=== PATIENT | female | born 1980 | race Caucasian/White ===

== ENCOUNTER 2020-02-10 23:51 | Emergency (ER) | payer OTHER ==
[2020-02-11] MEDS ORDERED: ONDANSETRON HCL INJ/PF 4 MG/2 ML SDV IV ONE ×2 (00:18→06:31)
[2020-02-11] MEDS ORDERED: RINGERS SOLUTION,LACTATED 1,000 ML IV ONE (00:19)
--- NOTE | 2020-02-11 00:21 | ER Document Report ---
ED Medical Screen (RME) - General Chief Complaint: Weakness Stated Complaint: WEAKNESS Time Seen by Provider: 02/11/20 00:17 Mode of Arrival: Ambulatory Information source: Patient Notes: HPI; 39-year-old female with no previous medical problems presents emergency room stating that while at dinner earlier tonight around 930 she suddenly became dizzy and nauseous and general weakness while eating dinner. States she got up to go to the ladies room did not vomit but had a bowel movement and then states she was unable to get off the toilet secondary to the dizziness. Denies any chest pain, shortness of breath, no difficulty breathing. States is feeling slightly better. Did not eat anything bad that she is aware of. PE: Alert and oriented x3. Mild distress noted. Lungs: Clear to auscultation without rales, rhonchi, wheezes. Heart: Regular rate and rhythm without murmurs, rubs, gallops. I have greeted and performed a rapid initial assessment of this patient. A comprehensive ED assessment and evaluation of the patient, analysis of test results and completion of the medical decision making process will be conducted by additional ED providers. I have specifically instructed the patient or family members with the patient to immediately return to any nursing staff should anything change in the patient's condition or with their chief complaint. TRAVEL OUTSIDE OF THE [place] IN LAST 30 DAYS: No - Related Data Allergies/Adverse Reactions: No Known Allergies Allergy (Unverified 02/11/20 00:19) Home Medications: MOTRIN. CLARITAN Past Medical History - Social History Frequency of alcohol use: Social Drug Abuse: None Physical Exam - Vital signs Vitals: Temp Pulse Resp BP Pulse Ox 97.7 F 85 16 129/88 H 97 02/10/20 23:59 02/10/20 23:59 02/10/20 23:59 02/10/20 23:59 02/10/20 23:59 Course - Vital Signs Vital signs: Temp Pulse Resp BP Pulse Ox 97.7 F 85 16 129/88 H 97 02/10/20 23:59 02/10/20 23:59 02/10/20 23:59 02/10/20 23:59 02/10/20 23:59
[2020-02-11 02:26] LABS: ABSOLUTE BASOPHILS # (AUTO) 0.1 10^3/uL (0.0-0.2); ABSOLUTE EOSINOPHILS # (AUTO) 0.3 10^3/uL (0.0-0.6); ABSOLUTE LYMPHOCYTES (AUTO) 2.5 10^3/uL (0.5-4.7); ABSOLUTE MONOCYTES (AUTO) 0.5 10^3/uL (0.1-1.4); ABSOLUTE NEUT (AUTO) 7.1 10^3/uL (1.7-8.2); BASOPHILS % (AUTO) 0.7 % (0-2); EOSINOPHILS % (AUTO) 2.7 % (0-6); HEMATOCRIT 40.8 % (36.0-47.0); HEMOGLOBIN 14.2 g/dL (12.0-15.5); LYMPHOCYTES % (AUTO) 24.3 % (13-45); MEAN CORPUSCULAR HEMOGLOBIN 30.8 pg (27.0-33.4); MEAN CORPUSCULAR HGB CONC 34.8 g/dL (32.0-36.0); MEAN CORPUSCULAR VOLUME 88 fl (80-97); MONOCYTES % (AUTO) 4.7 % (3-13); PLATELET COUNT 280 10^3/uL (150-450); RED BLOOD COUNT 4.61 10^6/uL (3.72-5.28); SEGMENTED NEUTROPHILS % (AUTO) 67.6 % (42-78); TOTAL CELLS COUNTED % (AUTO) 100 %; WHITE BLOOD COUNT 10.5 10^3/uL (4.0-10.5)
[2020-02-11 02:38] LABS: ALBUMIN 4.2 g/dL (3.5-5.0); ALKALINE PHOSPHATASE 86 U/L (38-126); ANION GAP 6 (5-19); ASPARTATE AMINO TRANSFERASE 24 U/L (14-36); BILIRUBIN,TOTAL 0.2 mg/dL (0.2-1.3); BLOOD UREA NITROGEN 18 mg/dL (7-20); CARBON DIOXIDE 29 mmol/L (22-30); CHLORIDE 102 mmol/L (98-107); GLUCOSE 144 mg/dL (75-110); POTASSIUM 3.8 mmol/L (3.6-5.0)
[2020-02-11 02:41] LABS: APPEARANCE,URINE SLIGHTLY-CLOUDY; BILIRUBIN,URINE NEGATIVE (NEGATIVE); COLOR,URINE YELLOW; GLUCOSE, URINE 50 mg/dL (NEGATIVE); KETONES,URINE TRACE mg/dL (NEGATIVE); LEUKOCYTE ESTERASE,URINE NEGATIVE (NEGATIVE); NITRITE,URINE NEGATIVE (NEGATIVE); PROTEIN,URINE NEGATIVE (NEGATIVE); UROBILINOGEN,URINE NEGATIVE mg/dL (<2.0)
[2020-02-11] MEDS ORDERED: NORMAL SALINE 1000 ML 1,000 ML IV ONE (06:30)
[2020-02-11] MEDS ORDERED: MECLIZINE HCL 25 MG TABLET PO ONE (06:31)
--- NOTE | 2020-02-11 07:26 | RADIOLOGY REPORT (SQ) ---
CLINICAL HISTORY: dizziness COMPARISON: None. TECHNIQUE: CT HEAD WITHOUT IV CONTRAST on 02/11/2020 6:32 AM CDT This exam was performed according to our departmental dose-optimization program, which includes automated exposure control, adjustment of the mA and/or kV according to patient size and/or use of iterative reconstruction technique. FINDINGS: There is no acute hemorrhage, mass effect or midline shift. French-white differentiation is preserved. There is no hydrocephalus. There is no significant volume loss for age. The calvarium is intact. Orbits and globes are unremarkable. The paranasal sinuses are clear. Mastoid air cells are clear. IMPRESSION: No acute intracranial findings.
--- NOTE | 2020-02-11 08:31 | ER Document Report ---
Entered by CASEY SRIVASTAVA SCRIBE 02/11/20 0703 Acting as scribe for:VALERI ENGLISH MD ED Dizziness/Weakness - General Chief Complaint: Near Syncope Stated Complaint: WEAKNESS Time Seen by Provider: 02/11/20 00:17 Mode of Arrival: Ambulatory Information source: Patient Notes: This 39 year old female patient with "borderline" diabetes presents to the emergency department today with complaints of dizziness with associated nausea. She reports that she had been busy most of the day yesterday and had not eaten in about 9 hours and she was sitting down to eat at [facility] and began feeling dizzy and her adds that she "seemed to be gazing past you". She became nauseated so they helped her to the bathroom. He reports that "while she was in the bathroom he googled what the cause of these symptoms could be and his two potential causes were hypoglycemia or food poisoning so he bought her a shot of RumChata to raise her sugar and kill the bacteria in her stomach." Her last menstrual period was January 29 and she is not . She complains of a headache and congestion which is chronic due to season allergies". She denies a sore throat. TRAVEL OUTSIDE OF THE [place] IN LAST 30 DAYS: No - Related Data Allergies/Adverse Reactions: No Known Allergies Allergy (Unverified 02/11/20 00:19) Home Medications: MOTRIN. CLARITAN Past Medical History - General Information source: Patient - Social History Smoking Status: Former Smoker Cigarette use (# per day): No Frequency of alcohol use: Social Drug Abuse: None Lives with: Family Family History: Reviewed & Not Pertinent Endocrine Medical History: Reports: Hx Diabetes Mellitus Type 2 - borderline Past Surgical History: Reports: Hx Tubal Ligation Review of Systems - Review of Systems Constitutional: No symptoms reported EENT: No symptoms reported Cardiovascular: See HPI, Dizziness Respiratory: No symptoms reported Gastrointestinal: See HPI, Nausea Genitourinary: No symptoms reported Female Genitourinary: No symptoms reported Musculoskeletal: No symptoms reported Skin: No symptoms reported Hematologic/Lymphatic: No symptoms reported Neurological/Psychological: No symptoms reported -: Yes All other systems reviewed and negative Physical Exam - Vital signs Vitals: Temp Pulse Resp BP Pulse Ox 97.7 F 85 16 129/88 H 97 02/10/20 23:59 02/10/20 23:59 02/10/20 23:59 02/10/20 23:59 02/10/20 23:59 - Notes Notes: Physical Exam: General: Alert, appears well. HEENT: Normocephalic. Atraumatic. PERRL. Extraocular movements intact. Orop harynx clear. Serous effusion behind TMs bilaterally. Two beat left lateral gaze nystagmus. Neck: Supple. Non-tender. Respiratory: No respiratory distress. Clear and equal breath sounds bilaterally. Cardiovascular: Regular rate and rhythm. Abdominal: Morbidly obese. Non-tender. No distension. Normal Bowel Sounds. Back: No gross abnormalities. Extremities: Moves all four extremities. Upper extremities: Normal inspection. Normal ROM. Lower extremities: Normal inspection. No edema. Normal ROM. Neurological: Normal cognition. AAOx4. Normal speech. Psychological: Normal affect. Normal Mood. Skin: Warm. Dry. Normal color. Course - Re-evaluation Re-evalutation: 02/11/20 08:26 Patient resting comfortably not showing any signs of distress at this time states her dizziness has improved. - Vital Signs Vital signs: Temp Pulse Resp BP Pulse Ox 97.7 F 85 18 117/74 99 02/10/20 23:59 02/10/20 23:59 02/11/20 07:46 02/11/20 07:46 02/11/20 07:46 02/11/20 08:27 Vital signs stable - Laboratory Result Diagrams: 02/11/20 02:10 02/11/20 02:10 Laboratory results interpreted by me: 02/11/20 02/11/20 02:10 02:10 Glucose 144 H Urine Glucose (UA) 50 H Urine Ketones TRACE H 02/11/20 08:27 Laboratories within normal limits except for a blood sugar 144. Patient does give a report that she had gestational prediabetic state during . - Diagnostic Test Radiology reviewed: Image reviewed, Reports reviewed Radiology results interpreted by me: 02/11/20 08:[address] of the brain shows no acute process. - EKG Interpretation by Me Additional EKG results interpreted by me: 02/11/20 08:29 Twelve-lead EKG shows normal sinus rhythm rate of 79 with nonspecific T wave changes in anterior chest leads. Discharge - Discharge Clinical Impression: Labyrinthitis of both ears, Nausea Condition: Stable Disposition: HOME, SELF-CARE Instructions: Labyrinthitis ([facility]), Meclizine ([facility]) Additional Instructions: Nausea or Vomiting, Nonspecific Vomiting (or nausea without vomiting) can be caused by many different problems. Of course, it can mean that something's wrong with the stomach, such as "stomach flu," ulcers, or inflammation. But it can also be a symptom of a problem that has nothing to do with the stomach or intestines. Vomiting is common with severe headaches, earaches, and tonsillitis. We see it with pneumonia or heart attacks. Drugs can cause nausea. Many abdominal problems cause vomiting; for example, gallstones, kidney stones, pancreatitis, and intestinal obstruction (blocked bowels). In most cases, curing the vomiting depends on fixing the problem that caused it. For temporary relief, we may use an anti-nausea medicine. For home use, we can prescribe suppositories, chewable pills, pills that dissolve in the mouth, or liquid anti-nausea drugs. If the vomiting seems to be caused by a problem in the stomach, acid-suppressing drugs may be prescribed as well. It's important to avoid dehydration. Sip clear liquids. Take increasing amounts of fluid over the first 24 hours. Then start small amounts of bland foods (such as dry toast, applesauce, mashed potato). Avoid aspirin, tobacco, and alcohol. Gradually resume your usual diet. If the vomiting worsens, if the problem that's making you vomit worsens, or if there's evidence of bleeding in the stomach (such as black, tarry stool, bloody or black vomit, or lightheadedness), you should return immediately. Call your doctor if you aren't improved in 24 to 36 hours. Prescriptions: Meclizine HCl [Antivert 25 mg Tablet] 25 mg PO TID PRN #21 tablet PRN Reason: Ondansetron [Zofran Odt 4 mg Tablet] 1 - 2 tab PO Q4H PRN #15 tab.rapdis PRN Reason: For Nausea/Vomiting I personally performed the services described in the documentation, reviewed and edited the documentation which was dictated to the scribe in my presence, and it accurately records my words and actions.
[2020-02-11 08:57] VITALS: BP 113/75
--- NOTE | 2020-02-11 16:33 | EKG REPORT ---
SEVERITY:- ABNORMAL ECG - SINUS RHYTHM NONSPECIFIC T ABNORMALITIES, ANTERIOR LEADS : Confirmed by: Good Sorto MD 11-Feb-2020 16:32:47
== END 2020-02-11 09:17 | disposition home or self-care (01) ==
LOC: ER 23:51
DX: H83.03 Labyrinthitis, bilateral (principal); R11.0 Nausea; R42 Dizziness and giddiness; H55.00 Unspecified nystagmus; J30.2 Other seasonal allergic rhinitis; R51 Headache; Z79.1 Long term (current) use of non-steroidal anti-inflammatories (NSAID); Z79.899 Other long term (current) drug therapy; Z87.891 Personal history of nicotine dependence
CPT/HCPCS: 93005; 99285; 96361; 96374; 36415; 84703; 85025; 80053; 81001; 70450; 93010; J2405; J7030